=== PATIENT | female | born 1935 | race Caucasian/White ===

== ENCOUNTER 2018-02-06 14:15 | Inpatient (IN) | payer BC ==
[~2018-02-06] VITALS: Ht 154.9 cm; Wt 60.5 kg
[2018-02-06 14:22] VITALS: Ht 154.9 cm; Wt 60.5 kg
[2018-02-06] MEDS ORDERED: SOD CHLORIDE 0.9% 500 ML IV STA (15:00)
[2018-02-06] MEDS ORDERED: ASPI-817 PO (16:04)
[2018-02-06] MEDS ORDERED: FLUT1AER INHALATION (16:04)
[2018-02-06] MEDS ORDERED: ATOR40TA68 PO (16:04)
[2018-02-06] MEDS ORDERED: CITA10TA5 PO (16:05)
[2018-02-06] MEDS ORDERED: SITA50TA2 PO (16:05)
[2018-02-06] MEDS ORDERED: LEVO75TA5 PO (16:05)
[2018-02-06] MEDS ORDERED: LOSA1TAB25 PO (16:06)
[2018-02-06] MEDS ORDERED: PSYL283P27 PO (16:07)
[2018-02-06] MEDS ORDERED: CALC500T91 PO (16:07)
[2018-02-06] MEDS ORDERED: POTA10TA37 PO (16:08)
[2018-02-06] MEDS ORDERED: CYAN100080 PO (16:09)
[2018-02-06] MEDS ORDERED: CHOL200073 PO (16:09)
[2018-02-06] MEDS ORDERED: MEMA10TA PO (16:10)
[2018-02-06] MEDS ORDERED: LACTINEX PO (16:10)
[2018-02-06] MEDS ORDERED: AMLO5TAB4 PO (16:10)
[2018-02-06] MEDS ORDERED: METF100010 PO (16:11)
[2018-02-06] MEDS ORDERED: ACET-141 PO (16:12)
[2018-02-06] MEDS ORDERED: CEFTRIAXONE 1 GM/50 ML (PMX) 50 ML IVPB ONE (17:00)
--- NOTE | 2018-02-06 17:01 | ERD ---
ER Documentation Chief Complaint Chief Complaint c/o dizziness, started today. Generalized weakness noted. HPI 82-year-old female with a history of dementia, diabetes, hypertension, hypothyroidism, brain aneurysm, stroke, and COPD presenting from her assisted living due to near syncopal episode. She was very dizzy and per her family member looked very pale. She denies any associated chest pain, headache, shortness of breath, fever, chills, abdominal pain, or dysuria. Currently she states she feels well. ROS All systems reviewed and are negative except as per history of present illness. Medications Home Meds Reported Medications Acetaminophen* (Acetaminophen*) 500 MG Extra Strength Tablet, 500 MG PO TID PRN for PAIN, TAB 02/06/18 Metformin Hcl* (Metformin Hcl*) 1,000 Mg Tablet, 1000 MG PO WITH BREAKFAST DINNE, #60 TAB 02/06/18 Memantine* (Namenda*) 10 Mg Tablet, 10 MG PO BID, #60 TAB 02/06/18 Lactobacillus Acidophilus* (Lactinex*) 1 Tab Chew, 1 TAB PO BID, TAB 02/06/18 Amlodipine Besylate* (Norvasc*) 5 Mg Tablet, 5 MG PO BID, TAB 02/06/18 Cholecalciferol (Vitamin D3) (VITAMIN D-3) 2,000 Unit Capsule, 2000 UNIT PO DAILY, CAP 02/06/18 Cyanocobalamin* (Vitamin B-12*) 1,000 Mcg Tablet.sa, 1000 MCG PO DAILY, TAB 02/06/18 Potassium Chloride* (K-Dur*) 10 Meq Tab.prt.sr, 10 MEQ PO DAILY, TAB 02/06/18 Calcium Carbonate (Kvus-Xrg-833) 500 Mg Tablet, 500 MG PO DAILY, TAB 02/06/18 Psyllium Husk/Aspartame (Metamucil Sugar-Free Powder) 283 Gm Powder, 5 ML PO DAILY 02/06/18 Losartan-Hydrochlorothiazide (Losartan-HCTZ) 100-25 Mg Tab, 1 TAB PO DAILY, TAB 02/06/18 Levothyroxine Sodium* (Levothyroxine Sodium*) 75 Mcg Tablet, 75 MCG PO BEFORE BREAKFAST, #30 TAB 02/06/18 Sitagliptin* (Januvia*) 50 Mg Tablet, 50 MG PO DAILY, #30 TAB 02/06/18 Citalopram Hydrobromide* (Citalopram Hydrobromide*) 10 Mg Tablet, 10 MG PO DAILY, #30 TAB 02/06/18 Fluticasone-Vilanterol (Breo Ellipta Inhaler) 100-25 Mcg/Actuation Aer.pow.ba, 1 PUFF INHALATION DAILY, #1 INHALER 02/06/18 Atorvastatin* (Atorvastatin*) 40 Mg Tablet, 40 MG PO QHS, #30 TAB 02/06/18 Aspirin* (Aspirin* EC) 81 Mg Tablet.dr, 81 MG PO DAILY, TAB 02/06/18 Allergies Allergies: Coded Allergies: No Known Allergy (Unverified , 02/06/18) PMhx/Soc History of Surgery: Yes (BRAIN ANEURISM ) Anesthesia Reaction: No Hx Neurological Disorder: Yes (CVA, DEMENTIA) Hx Respiratory Disorders: Yes (COPD) Hx Cardiac Disorders: Yes (HTN) Hx Psychiatric Problems: No Hx Miscellaneous Medical Probl: Yes (DM TYPE II) Hx Alcohol Use: Yes Hx Substance Use: No Hx Tobacco Use: Yes Smoking Status: Former smoker FmHx Family History: No diabetes Physical Exam Vitals Vital Signs Date Temp Pulse Resp B/P (MAP) Pulse Ox O2 O2 Flow FiO2 Time Delivery Rate 02/06/18 97.9 93 20 135/63 100 14:22 (87) Physical Exam Const: No acute distress Head: Atraumatic Eyes: Normal Conjunctiva ENT: Normal External Ears, Nose and Mouth. Dry mucous membranes Neck: Full range of motion. No meningismus. Resp: Clear to auscultation bilaterally Cardio: Regular rate and rhythm, no murmurs Abd: Soft, non tender, non distended. Normal bowel sounds Skin: Somewhat pale. No petechiae or rashes Back: No midline or flank tenderness Ext: No cyanosis, or edema Neur: Awake and alert, oriented to self and place. Normal speech. Cranial nerves intact. Strength and sensations intact in all 4 extremities Psych: Normal Mood and Affect Result Diagram: 02/06/18 1513 02/06/18 1513 Results 24 hrs Laboratory Tests Test 02/06/18 15:13 02/06/18 15:24 02/06/18 16:19 White Blood Count 7.9 10^3/ul Red Blood Count 5.26 10^6/ul Hemoglobin 14.0 g/dl Hematocrit 44.6 % Mean Corpuscular Volume 84.8 fl Mean Corpuscular Hemoglobin 26.6 pg Mean Corpuscular 31.4 g/dl Hemoglobin Concent Red Cell Distribution Width 14.6 % Platelet Count 239 10^3/UL Mean Platelet Volume 10.0 fl Immature Granulocytes % 0.500 % Neutrophils % 73.4 % Lymphocytes % 14.1 % Monocytes % 8.0 % Eosinophils % 3.1 % Basophils % 0.9 % Nucleated Red Blood Cells % 0.0 /100WBC Immature Granulocytes # 0.040 10^3/ul Neutrophils # 5.8 10^3/ul Lymphocytes # 1.1 10^3/ul Monocytes # 0.6 10^3/ul Eosinophils # 0.2 10^3/ul Basophils # 0.1 10^3/ul Nucleated Red Blood Cells # 0.0 10^3/ul Prothrombin Time 12.7 Sec Prothrombin Time Ratio 1.0 INR International 0.94 Normalized Ratio Sodium Level 147 mmol/L Potassium Level 4.2 mmol/L Chloride Level 105 mmol/L Carbon Dioxide Level 28 mmol/L Anion Gap 14 Blood Urea Nitrogen 36 mg/dl Creatinine 0.91 mg/dl Est Glomerular Filtrat mL/min Rate mL/min Glucose Level 145 mg/dl Calcium Level 11.1 mg/dl Troponin I < 0.012 ng/ml Bedside Glucose 136 mg/dL Urine Color YELLOW Urine Clarity CLEAR Urine pH 6.0 Urine Specific [place] 1.015 Urine Ketones NEGATIVE mg/dL Urine Nitrite POSITIVE mg/dL Urine Bilirubin NEGATIVE mg/dL Urine Urobilinogen NEGATIVE mg/dL Urine Leukocyte Esterase 2+ Damien/ul Urine Microscopic RBC 2 /HPF Urine Microscopic WBC 9 /HPF Urine Bacteria MANY /HPF Urine Hemoglobin NEGATIVE mg/dL Urine Glucose NEGATIVE mg/dL Urine Total Protein NEGATIVE mg/dl Current Medications Medications Dose Sig/Carlitos Start Time Status Last (Trade) Ordered Route PRN Stop Time Admin Dose Reason Admin Sodium 500 ml @ Q1H STAT 02/06/18 DC 02/06/18 Chloride 500 mls/hr IV 15:00 02/06/18 15:17 15:59 Ceftriaxone 50 ml @ ONCE ONCE 02/06/18 DC 02/06/18 Sodium 100 mls/hr IVPB 17:00 02/06/18 16:47 17:29 Amlodipine 5 mg BID PO 02/06/18 Besylate 21:00 (Norvasc) Aspirin 81 mg DAILY PO 02/07/18 (Halfprin) 09:00 40 mg QHS PO 02/06/18 Atorvastatin 21:00 Calcium (Lipitor) Calcium 1.25 gm DAILY PO 02/07/18 Carbonate 09:00 (Oyster Shell Calcium) 2,000 unit DAILY PO 02/07/18 Cholecalcifer 09:00 ol (Vitamin D) Citalopram 10 mg DAILY PO 02/07/18 Hydrobromide 09:00 (Celexa) 1,000 mcg DAILY PO 02/07/18 Cyanocobalami 09:00 n (Vitamin B12) 1 inh DAILY INH 02/07/18 Fluticasone/ 09:00 Vilanterol (Breo Ellipta 100-25 Mcg Inh) 75 mcg BEFORE 02/07/18 Levothyroxine BREAKFAST 07:00 Sodium PO (Synthroid) Memantine 10 mg BID PO 02/06/18 (Namenda) 21:00 Ondansetron 4 mg ER BRIDGE 02/06/18 DC HCl (Zofran PRN IV 18:00 02/06/18 Inj) NAUSEA AND/OR 18:00 VOMITING 650 mg ER BRIDGE 02/06/18 DC Acetaminophen PRN PO MILD 18:00 02/06/18 (Tylenol PAIN(1-3)OR 18:00 Tab) ELEVATED TEMP Sodium 1,000 ml @ Q24H IV 02/06/18 Chloride 40 mls/hr 17:41 IV Flush 3 ml PER 02/06/18 (NS 3 ml) PROTOCOL IV 18:00 Ondansetron 4 mg Q6H PRN 02/06/18 HCl (Zofran IV NAUSEA 18:00 Inj) AND/OR VOMITING 650 mg Q6H PRN 02/06/18 Acetaminophen PO PAIN 18:00 (Tylenol LEVEL 1-3 OR Tab) FEVER 1 tab Q6H PRN 02/06/18 Acetaminophen PO PAIN 18:00 / LEVEL 4-6 Hydrocodone Bitart ([place] (5/325)) Ceftriaxone 50 ml @ Q24H IVPB 02/07/18 Sodium 100 mls/hr 18:00 Discontinue ONCE ONCE 02/06/18 UNV Miscellaneous current oral XX 18:30 02/06/18 sulfonylur... 18:31 Information (* Miscellaneous Pharmacy Order) Diagnostic 1 ea 02 XX 02/07/18 UNV Test (Pha) 02:00 (Accu-Chek) Insulin 9 units DAILY@199902/06/18 UNV Glargine SC 20:00 (Lantus) ONCE ONCE 02/06/18 UNV Miscellaneous HYPOGLYCEMIA XX 18:30 02/06/18 PROTOCOL 18:31 Information w... (* Miscellaneous Pharmacy Order) Insulin NOVOLOG WITH MEALS 02/06/18 UNV Aspart *MILD* BEDTIME SC 21:00 (Novolog ALGORITHM Insulin Pen) Discontinue ONCE ONCE 02/06/18 UNV Miscellaneous all previ... XX 18:30 02/06/18 18:31 Information (* Miscellaneous Pharmacy Order) Losartan 100 mg DAILY PO 02/07/18 UNV Potassium 09:00 (Cozaar) Procedures/MDM EMERGENT LABS AND DIAGNOSTIC STUDIES: Lab Results above were reviewed and interpreted by me. CBC: no anemia or evidence of infection BMP: Hypernatremia, elevated BUN, consistent with dehydration. No evidence of renal failure or hypoglycemia. No evidence of acidosis Troponin within normal limits, not indicative of cardiac ischemia UA: Consistent with infection 12-lead EKG was interpreted by Ankur Caro MD: Normal Sinus Rhythm with ventricular rate of beats per minute Normal axis Normal intervals No acute ST or T wave changes suggestive of acute ischemia or STEMI. Radiology Results as interpreted by Radiology below were reviewed by SVictor M Caro MD: Chest x-ray shows no significant acute abnormalities Initial Nursing notes reviewed. Previous Medical Records requested via the Electronic Health Record. EMERGENCY DEPARTMENT COURSE / MEDICAL DECISION MAKING: The patient presented after a near syncopal episode. Differential includes but is not limited to cardiac arrhythmia or ischemia, pulmonary embolism, vasovagal syncope, situational syncope, dehydration with orthostatic hypotension, hemorrhage, sepsis, stroke ,ICH, hypoglycemia. I have a low suspicion for seizure, stroke, or intracranial hemorrhage. No evidence of ACS. Blood sugar was normal. EKG showed no significant arrhythmia or ischemia. Labs were notable for hypernatremia and elevated BUN, likely secondary to dehydration. She also has evidence of a UTI for which Rocephin was given. Chest Xray showed no acute abnormalities. Given the patients medical history and risk factors, occult etiology such as fatal dysrhythmia cannot be ruled out. Her symptoms are most likely secondary to dehydration. I do not believe patient is safe for discharge and will need admission for telemetry monitoring and further workup. Accepting Care Team: Current data and ongoing care discussed. Time: Time of admission Primary Provider: Dr. Migue Sauceda Diagnosis: Primary Impression: Near syncope Additional Impression: Dehydration, mild Condition: JOSSE Ford MD Feb 06, 2018 17:01
[2018-02-06] MEDS ORDERED: SOD CHLORIDE 0.9% 1,000 ML IV SCH (17:41)
[2018-02-06] MEDS ORDERED: NACL 0.9% 3 ML SYG IV SCH (18:00)
[2018-02-06] MEDS ORDERED: ACETAMINOPHEN 325 MG TAB PO PRN ×2 (18:00)
[2018-02-06] MEDS ORDERED: HYDROCODONE/APAP (5/325) TAB PO PRN (18:00)
[2018-02-06] MEDS ORDERED: ONDANSETRON 4 MG INJ IV PRN ×2 (18:00)
--- NOTE | 2018-02-06 18:12 | HP ---
Date/Time of Note Date/Time of Note DATE: 02/06/18 TIME: 18:11 Assessment/Plan VTE Prophylaxis Pharmacological prophylaxis: other Lines/Catheters IV Catheter Type (from Nrsg): Peripheral IV Assessment/Plan Hospital Course Objective Physical exam General: Patient is laying in bed and answers questions appropriately Mentation: Patient is alert and oriented to self Head: Normocephalic atraumatic Eyes: EOMI, pupils reactive to light Neck: Supple, nontender, midline Respiratory: Clear to auscultation bilaterally Cardiovascular: regular rate, no obvious murmurs Gastrointestinal: non-tender to palpation, bowel sounds heard. Neurological: Moves all extremities spontaneously Skin: No new skin lesions Assessment and plan Near syncope, dizziness -Given patient's dementia status and elderly age, uncertain if this is near syncope versus true syncope, will workup for presyncope given uncertainties -Echocardiogram pending -CT head pending -MRI head pending UTI -Ceftriaxone for now Hypertension -Holding patient's hydrochlorothiazide as this may be dehydrating in an elderly individual with dementia, will continue other meds Diabetes mellitus -Insulin while in house Dementia -Continue Namenda Dyslipidemia -Continue home meds COPD -Continue Brio Hypothyroidism -Continue home meds Mood disorder -continue Celexa Disposition -Mild IV fluid, antibiotic, imaging pending Result Diagram: 02/06/18 1513 02/06/18 1513 Results 24hrs Laboratory Tests Test 02/06/18 15:13 02/06/18 15:24 02/06/18 16:19 White Blood Count 7.9 Red Blood Count 5.26 Hemoglobin 14.0 Hematocrit 44.6 Mean Corpuscular Volume 84.8 Mean Corpuscular Hemoglobin 26.6 L Mean Corpuscular Hemoglobin Concent 31.4 L Red Cell Distribution Width 14.6 H Platelet Count 239 Mean Platelet Volume 10.0 Immature Granulocytes % 0.500 H Neutrophils % 73.4 Lymphocytes % 14.1 L Monocytes % 8.0 Eosinophils % 3.1 Basophils % 0.9 Nucleated Red Blood Cells % 0.0 Immature Granulocytes # 0.040 H Neutrophils # 5.8 Lymphocytes # 1.1 Monocytes # 0.6 Eosinophils # 0.2 Basophils # 0.1 Nucleated Red Blood Cells # 0.0 Prothrombin Time 12.7 Prothrombin Time Ratio 1.0 INR International Normalized Ratio 0.94 Sodium Level 147 H Potassium Level 4.2 Chloride Level 105 Carbon Dioxide Level 28 Anion Gap 14 H Blood Urea Nitrogen 36 H Creatinine 0.91 Est Glomerular Filtrat Rate mL/min Glucose Level 145 Calcium Level 11.1 H Troponin I < 0.012 Bedside Glucose 136 Urine Color YELLOW Urine Clarity CLEAR Urine pH 6.0 Urine Specific [place] 1.015 Urine Ketones NEGATIVE Urine Nitrite POSITIVE A Urine Bilirubin NEGATIVE Urine Urobilinogen NEGATIVE Urine Leukocyte Esterase 2+ H Urine Microscopic RBC 2 Urine Microscopic WBC 9 H Urine Bacteria MANY A Urine Hemoglobin NEGATIVE Urine Glucose NEGATIVE Urine Total Protein NEGATIVE HPI/ROS Admit Date/Time Admit Date/Time Hx of Present Illness Patient is a female with past medical history significant for vascular dementia, diabetes mellitus, hypertension, hypothyroidism, brain aneurysm, CVA, COPD, dyslipidemia, mood disorder who presents to [facility] from assisted living facility due to near syncope. Patient does have dementia but is occasionally oriented to self, information is obtained at bedside with help of family member. Patient states that she woke up today she started to feel dizzy, did not fall or have a true syncopal episode. Patient currently is very pleasant, however is very difficult to ascertain which is true or not given her dementia status. Patient does not have any other acute complaints and denies any urinary symptoms. Patient denies chest pain, shortness of breath, headache, dizziness, leg pain, abdominal pain, nausea, vomiting PMH/Family/Social Past Medical History Medications Current Medications Amlodipine Besylate (Norvasc) 5 mg BID PO ; Start 02/06/18 at 21:00 Aspirin (Halfprin) 81 mg DAILY PO ; Start 02/07/18 at 09:00 Atorvastatin Calcium (Lipitor) 40 mg QHS PO ; Start 02/06/18 at 21:00 Calcium Carbonate (Oyster Shell Calcium) 1.25 gm DAILY PO ; Start 02/07/18 at 09:00 Cholecalciferol (Vitamin D) 2,000 unit DAILY PO ; Start 02/07/18 at 09:00 Citalopram Hydrobromide (Celexa) 10 mg DAILY PO ; Start 02/07/18 at 09:00 Cyanocobalamin (Vitamin B12) 1,000 mcg DAILY PO ; Start 02/07/18 at 09:00 Fluticasone/ Vilanterol (Breo Ellipta 100-25 Mcg Inh) 1 inh DAILY INH ; Start 02/07/18 at 09:00 Levothyroxine Sodium (Synthroid) 75 mcg BEFORE BREAKFAST PO ; Start 02/07/18 at 07:00 Memantine (Namenda) 10 mg BID PO ; Start 02/06/18 at 21:00 Sodium Chloride 1,000 ml @ 40 mls/hr Q24H IV ; Start 02/06/18 at 17:41 IV Flush (NS 3 ml) 3 ml PER PROTOCOL IV ; Start 02/06/18 at 18:00 Ondansetron HCl (Zofran Inj) 4 mg Q6H PRN IV NAUSEA AND/OR VOMITING; Start 02/06/18 at 18:00 Acetaminophen (Tylenol Tab) 650 mg Q6H PRN PO PAIN LEVEL 1-3 OR FEVER; Start 02/06/18 at 18:00 Acetaminophen/ Hydrocodone Bitart ([place] (5/325)) 1 tab Q6H PRN PO PAIN LEVEL 4-6; Start 02/06/18 at 18:00 Ceftriaxone Sodium 50 ml @ 100 mls/hr Q24H IVPB ; Start 02/07/18 at 18:00 Coded Allergies: No Known Allergy (Unverified , 02/06/18) Social History Smoking Status: Former smoker Exam/Review of Systems Vital Signs Vitals Vital Signs Date Temp Pulse Resp B/P (MAP) Pulse Ox O2 O2 Flow FiO2 Time Delivery Rate 02/06/18 97.9 93 20 135/63 100 14:22 (87) PUMA HOGAN Feb 06, 2018 18:12
[2018-02-06] MEDS ORDERED: DEXTROSE 50% 50 ML SYRINGE IV PRN ×2 (18:30)
[2018-02-06] MEDS ORDERED: GLUCOSE GEL 15 GRAM TUBE BUCCAL PRN (18:30)
[2018-02-06] MEDS ORDERED: GLUCOSE GEL 15 GRAM TUBE PO PRN ×2 (18:30)
[2018-02-06] MEDS ORDERED: GLUCAGON 1 MG INJ IM PRN (18:30)
[2018-02-06] MEDS: INSULIN ASPART [NOVOLOG] 3 ML PEN SC SCH (21:00)
[2018-02-06 21:10] VITALS: PULSE 84
[2018-02-06 21:20] VITALS: BP 141/61; PULSE 82; RESP 18
[2018-02-06] MEDS: ATORVASTATIN 40 MG TAB PO SCH (21:33)
[2018-02-06] MEDS: MEMANTINE 10 MG TAB PO SCH (21:33)
[2018-02-06] MEDS: AMLODIPINE 5 MG TAB PO SCH (21:34)
[2018-02-06] MEDS: INSULIN GLARGINE [LANTus] (100 UNITS/ML) SYG SC SCH (22:07)
[2018-02-07] VITALS (10 sets, daily range): BP systolic 128–148; BP diastolic 59–72; PULSE 70–85; RESP 18–20
[2018-02-07] MEDS: ACCU-CHEK XX SCH (01:35)
[2018-02-07] MEDS: LEVOTHYROXINE 75 MCG TAB PO SCH (06:44)
[2018-02-07] MEDS: INSULIN ASPART [NOVOLOG] 3 ML PEN SC SCH ×4 (07:55→21:00)
[2018-02-07] MEDS: ASPIRIN (EC) 81 MG TAB PO SCH (08:42)
[2018-02-07] MEDS: AMLODIPINE 5 MG TAB PO SCH ×2 (08:43→21:19)
[2018-02-07] MEDS: CITALOPRAM 20 MG TAB PO SCH (08:43)
[2018-02-07] MEDS: CYANOCOBALAMIN 500 MCG TAB PO SCH (08:44)
[2018-02-07] MEDS: MEMANTINE 10 MG TAB PO SCH ×2 (08:44→21:19)
[2018-02-07] MEDS: CALCIUM CARBONATE 1.25 GM TAB PO SCH (08:44)
[2018-02-07] MEDS: LOSARTAN 50 MG TAB PO SCH (08:45)
[2018-02-07] MEDS: FLUTICASONE/VILANTEROL 100-25 INH SCH (08:46)
[2018-02-07] MEDS: CHOLECALCIFEROL 2,000 UNIT CAP PO SCH (12:54)
[2018-02-07] MEDS ORDERED: MAGNESIUM SULFATE 2 GM/50 ML 50 ML IVPB ONE (13:00)
--- NOTE | 2018-02-07 15:20 | PN ---
Date/Time of Note Date/Time of Note DATE: 02/07/18 TIME: 15:19 Objective Vitals Vital Signs Date Temp Pulse Resp B/P (MAP) Pulse Ox O2 O2 Flow FiO2 Time Delivery Rate 02/07/18 98.5 85 20 128/63 90 15:13 (84) 02/07/18 Room Air 04:00 Intake and Output 02/06/18 02/06/18 02/07/18 1515:00 23:00 07:00 IntakeIntake Total 100 ml 320 ml BalanceBalance 100 ml 320 ml Results Result Diagram: 02/07/18 0551 02/07/18 0551 Medications Medications Current Medications Amlodipine Besylate (Norvasc) 5 mg BID PO Last administered on 02/07/18 08:43; Admin Dose 5 MG; Start 02/06/18 at 21:00 Aspirin (Halfprin) 81 mg DAILY PO Last administered on 02/07/18 08:42; Admin Dose 81 MG; Start 02/07/18 at 09:00 Atorvastatin Calcium (Lipitor) 40 mg QHS PO Last administered on 02/06/18 21:33; Admin Dose 40 MG; Start 02/06/18 at 21:00 Calcium Carbonate (Oyster Shell Calcium) 1.25 gm DAILY PO Last administered on 02/07/18 08:44; Admin Dose 1.25 GM; Start 02/07/18 at 09:00 Cholecalciferol (Vitamin D) 2,000 unit DAILY PO Last administered on 02/07/18 12:54; Admin Dose 2,000 UNIT; Start 02/07/18 at 09:00 Citalopram Hydrobromide (Celexa) 10 mg DAILY PO Last administered on 02/07/18 08:43; Admin Dose 10 MG; Start 02/07/18 at 09:00 Cyanocobalamin (Vitamin B12) 1,000 mcg DAILY PO Last administered on 02/07/18 08:44; Admin Dose 1,000 MCG; Start 02/07/18 at 09:00 Fluticasone/ Vilanterol (Breo Ellipta 100-25 Mcg Inh) 1 inh DAILY INH Last administered on 02/07/18 08:46; Admin Dose 1 INH; Start 02/07/18 at 09:00 Levothyroxine Sodium (Synthroid) 75 mcg BEFORE BREAKFAST PO Last administered on 1/3/19at 06:44; Admin Dose 75 MCG; Start 02/07/18 at 07:00 Memantine (Namenda) 10 mg BID PO Last administered on 02/07/18at 08:44; Admin Dose 10 MG; Start 02/06/18 at 21:00 IV Flush (NS 3 ml) 3 ml PER PROTOCOL IV ; Start 02/06/18 at 18:00 Ondansetron HCl (Zofran Inj) 4 mg Q6H PRN IV NAUSEA AND/OR VOMITING; Start 02/06/18 at 18:00 Acetaminophen (Tylenol Tab) 650 mg Q6H PRN PO PAIN LEVEL 1-3 OR FEVER; Start 02/06/18 at 18:00 Acetaminophen/ Hydrocodone Bitart ([place] (5/325)) 1 tab Q6H PRN PO PAIN LEVEL 4-6; Start 02/06/18 at 18:00 Ceftriaxone Sodium 50 ml @ 100 mls/hr Q24H IVPB ; Start 02/07/18 at 18:00 Diagnostic Test (Pha) (Accu-Chek) 1 ea 02 XX ; Start 02/07/18 at 02:00 Insulin Glargine (Lantus) 9 units DAILY@2000 SC Last administered on 02/06/18at 22:07; Admin Dose 9 UNITS; Start 02/06/18 at 20:00 Insulin Aspart (Novolog Insulin Pen) NOVOLOG *MILD* ALGORITHM WITH MEALS BEDTIME SC ; Start 02/06/18 at 21:00 Losartan Potassium (Cozaar) 100 mg DAILY PO Last administered on 02/07/18at 08:45; Admin Dose 100 MG; Start 02/07/18 at 09:00 Miscellaneous Information 1 ea NOTE XX ; Start 02/06/18 at 18:30 Glucose (Glutose) 15 gm Q15M PRN PO DECREASED GLUCOSE; Start 02/06/18 at 18:30 Glucose (Glutose) 22.5 gm Q15M PRN PO DECREASED GLUCOSE; Start 02/06/18 at 18:30 Dextrose (D50w Syringe) 25 ml Q15M PRN IV DECREASED GLUCOSE; Start 02/06/18 at 18:30 Dextrose (D50w Syringe) 50 ml Q15M PRN IV DECREASED GLUCOSE; Start 02/06/18 at 18:30 Glucagon (Glucagen) 1 mg Q15M PRN IM DECREASED GLUCOSE; Start 02/06/18 at 18:30 Glucose (Glutose) 15 gm Q15M PRN BUCCAL DECREASED GLUCOSE; Start 02/06/18 at 18:30 VTE Prophylaxis Risk score (from Ns)>0 risk: 4 SCD applied (from Ns): Yes Lines/Catheters IV Catheter Type: Pablo in Place: No Assessment/Plan Hospital Course subjective no dizziness Objective Physical exam General: Patient is laying in bed and answers questions appropriately Mentation: Patient is alert and oriented to self Head: Normocephalic atraumatic Eyes: EOMI, pupils reactive to light Neck: Supple, nontender, midline Respiratory: Clear to auscultation bilaterally Cardiovascular: regular rate, no obvious murmurs Gastrointestinal: non-tender to palpation, bowel sounds heard. Neurological: Moves all extremities spontaneously Skin: No new skin lesions Assessment and plan Near syncope, dizziness -Given patient's dementia status and elderly age, uncertain if this is near syncope versus true syncope, will workup for presyncope given uncertainties -Echocardiogram pending -CT head noted -MRI head unable to perform due to hardware in brain due to aneurysm clipping? UTI -Ceftriaxone for now Hypertension -Holding patient's hydrochlorothiazide as this may be dehydrating in an elderly individual with dementia, will continue other meds Diabetes mellitus -Insulin while in house Dementia -Continue Namenda Dyslipidemia -Continue home meds COPD -Continue Breo Hypothyroidism -Continue home meds Mood disorder -continue Celexa hx of aneurysm clipping -monitor Disposition -cont abx, monitor BP without HCTZ, if stable, DC back to facility tomorrow PUMA HOGAN Feb 07, 2018 15:20
[2018-02-07] MEDS ORDERED: CEFTRIAXONE 1 GM/50 ML (PMX) 50 ML IVPB SCH (18:00)
--- NOTE | 2018-02-07 19:22 | RADRPT ---
Echocardiogram Report Patient Name: EDISON WRIGHT Gender: Female Date: 1935 Study Date: 07-Feb-2018 Mobile Nurse: Ryann [facility] Location: [address] Ref. Physician: PUMA HOGAN Quality: Adequate Procedures: Transthoracic echocardiogram with complete 2D, M-Mode, and doppler examination. Indications: Syncope. 2D/M Mode Doppler Measurement Value Normal Ranges Measurement Value Normal Ranges LVIDd 2D 2.9 3.5 - 5.6 cm AV Peak Gregory 1.7 m/sec LVIDs 2D 1.9 2.1 - 4.1 cm AV Peak PG 12.0 mmHg LVPWd 2D 1.2 0.6 - 1.1 cm AI Peak PG 39.0 mmHg IVSd 2D 1.2 0.6 - 1.1 cm AI Peak Gregory 3.1 m/sec AoR Diam 2D 2.9 2.0 - 3.7 cm AI PHT 382.0 msec LA/Ao 2D 1 0 - 1 LVOT Peak Gregory 1.0 m/sec LA Dimen 2D 3.0 2.3 - 4.0 cm LVOT Peak PG 4.0 mmHg MV E Peak Gregory 0.9 m/sec MV A Peak Gregory 1.2 m/sec MV E/A 0.7 MV Decel Time 356 msec Lat E` Gregory 0.1 m/sec Lateral E/E` 16.0 Med E` Gregory 0.1 m/sec MV E/A 0.7 TR Peak Gregory 2.4 m/sec TR Peak PG 24.0 mmHg RVSP 27.0 mmHg Findings Left Ventricle: Normal left ventricular systolic function. Normal left ventricular cavity size. Mild concentric left ventricular hypertrophy. Ejection fraction is visually estimated at 65 %. Tissue Doppler/Mitral Doppler indices are consistent with impaired relaxation (Stage I diastolic dysfunction). Right Ventricle: Normal right ventricular size. Normal right ventricular systolic function. Left Atrium: The left atrium is normal in size. Right Atrium: The right atrium is normal in size. Mitral Valve: Mild mitral leaflet calcification. Mild mitral annular calcification. Trace mitral regurgitation. Aortic Valve: No significant aortic stenosis or insufficiency. Aortic cusps appear mildly calcified. Mild aortic valve regurgitation. Tricuspid Valve: Normal appearance of the tricuspid valve. Estimated peak PA systolic pressure 27 mmHg. There is mild tricuspid regurgitation. Pulmonic Valve: Pulmonic valve not well visualized. There is trace pulmonic regurgitation. Pericardium: Trivial pericardial effusion. Aorta: Normal aortic root. IVC: Normal size and normal respiratory collapse consistent with normal right atrial pressure. Conclusions Normal left ventricular systolic function. Normal left ventricular cavity size. Mild concentric left ventricular hypertrophy. Ejection fraction is visually estimated at 65 %. Tissue Doppler/Mitral Doppler indices are consistent with impaired relaxation (Stage I diastolic dysfunction). Normal right ventricular size. Normal right ventricular systolic function. The left atrium is normal in size. The right atrium is normal in size. Mild mitral leaflet calcification. Mild mitral annular calcification. Trace mitral regurgitation. No significant aortic stenosis or insufficiency. Aortic cusps appear mildly calcified. Mild aortic valve regurgitation. Normal appearance of the tricuspid valve. Estimated peak PA systolic pressure 27 mmHg. There is mild tricuspid regurgitation. Trivial pericardial effusion. Electronically Signed By: Jordi Marina 07-Feb-2018 19:21:23 -0800 Patient Name: EDISON WRIGHT Study Date: 07-Feb-2018 [id number]
[2018-02-07] MEDS: ATORVASTATIN 40 MG TAB PO SCH (21:19)
[2018-02-07] MEDS: INSULIN GLARGINE [LANTus] (100 UNITS/ML) SYG SC SCH (21:36)
[2018-02-08] VITALS (10 sets, daily range): BP systolic 114–146; BP diastolic 57–75; PULSE 66–86; RESP 15–18
[2018-02-08] MEDS: ACCU-CHEK XX SCH (02:00)
[2018-02-08] MEDS: LEVOTHYROXINE 75 MCG TAB PO SCH (06:16)
[2018-02-08] MEDS: INSULIN ASPART [NOVOLOG] 3 ML PEN SC SCH ×4 (07:55→20:34)
[2018-02-08] MEDS: ASPIRIN (EC) 81 MG TAB PO SCH (08:33)
[2018-02-08] MEDS: LOSARTAN 50 MG TAB PO SCH (08:33)
[2018-02-08] MEDS: CITALOPRAM 20 MG TAB PO SCH (08:33)
[2018-02-08] MEDS: CALCIUM CARBONATE 1.25 GM TAB PO SCH (08:33)
[2018-02-08] MEDS: CHOLECALCIFEROL 2,000 UNIT CAP PO SCH (08:34)
[2018-02-08] MEDS: FLUTICASONE/VILANTEROL 100-25 INH SCH (08:34)
[2018-02-08] MEDS: MEMANTINE 10 MG TAB PO SCH ×2 (08:34→20:34)
[2018-02-08] MEDS: CYANOCOBALAMIN 500 MCG TAB PO SCH (08:34)
[2018-02-08] MEDS: AMLODIPINE 5 MG TAB PO SCH ×2 (10:34→20:34)
--- NOTE | 2018-02-08 15:57 | PN ---
Date/Time of Note Date/Time of Note DATE: 02/08/18 TIME: 15:55 Objective Vitals Vital Signs Date Temp Pulse Resp B/P (MAP) Pulse Ox O2 O2 Flow FiO2 Time Delivery Rate 02/08/18 97.6 86 17 128/62 92 15:06 (84) 02/07/18 Room Air 04:00 Intake and Output 02/07/18 02/07/18 02/08/18 1515:00 23:00 07:00 IntakeIntake Total 480 ml 550 ml 250 ml BalanceBalance 480 ml 550 ml 250 ml Results Result Diagram: 02/08/1861702/08/18617 Medications Medications Current Medications Amlodipine Besylate (Norvasc) 5 mg BID PO Last administered on 02/08/18 10:34; Admin Dose 5 MG; Start 02/06/18 at 21:00 Aspirin (Halfprin) 81 mg DAILY PO Last administered on 02/08/18 08:33; Admin Dose 81 MG; Start 02/07/18 at 09:00 Atorvastatin Calcium (Lipitor) 40 mg QHS PO Last administered on 02/07/18 21:19; Admin Dose 40 MG; Start 02/06/18 at 21:00 Calcium Carbonate (Oyster Shell Calcium) 1.25 gm DAILY PO Last administered on 02/08/18 08:33; Admin Dose 1.25 GM; Start 02/07/18 at 09:00 Cholecalciferol (Vitamin D) 2,000 unit DAILY PO Last administered on 02/08/18 08:34; Admin Dose 2,000 UNIT; Start 02/07/18 at 09:00 Citalopram Hydrobromide (Celexa) 10 mg DAILY PO Last administered on 02/08/18 08:33; Admin Dose 10 MG; Start 02/07/18 at 09:00 Cyanocobalamin (Vitamin B12) 1,000 mcg DAILY PO Last administered on 02/08/18 08:34; Admin Dose 1,000 MCG; Start 02/07/18 at 09:00 Fluticasone/ Vilanterol (Breo Ellipta 100-25 Mcg Inh) 1 inh DAILY INH Last administered on 02/08/18 08:34; Admin Dose 1 INH; Start 02/07/18 at 09:00 Levothyroxine Sodium (Synthroid) 75 mcg BEFORE BREAKFAST PO Last administered on 02/08/18at 06:16; Admin Dose 75 MCG; Start 02/07/18 at 07:00 Memantine (Namenda) 10 mg BID PO Last administered on 02/08/18at 08:34; Admin Dose 10 MG; Start 02/06/18 at 21:00 IV Flush (NS 3 ml) 3 ml PER PROTOCOL IV ; Start 02/06/18 at 18:00 Ondansetron HCl (Zofran Inj) 4 mg Q6H PRN IV NAUSEA AND/OR VOMITING; Start 02/06/18 at 18:00 Acetaminophen (Tylenol Tab) 650 mg Q6H PRN PO PAIN LEVEL 1-3 OR FEVER; Start 02/06/18 at 18:00 Acetaminophen/ Hydrocodone Bitart ([place] (5/325)) 1 tab Q6H PRN PO PAIN LEVEL 4-6; Start 02/06/18 at 18:00 Diagnostic Test (Pha) (Accu-Chek) 1 ea 02 XX ; Start 02/07/18 at 02:00 Insulin Glargine (Lantus) 9 units DAILY@2000 SC Last administered on 02/07/18at 21:36; Admin Dose 9 UNITS; Start 02/06/18 at 20:00 Insulin Aspart (Novolog Insulin Pen) NOVOLOG *MILD* ALGORITHM WITH MEALS BEDTIME SC Last administered on 02/08/18at 12:19; Admin Dose 5 UNIT; Start 02/06/18 at 21:00 Losartan Potassium (Cozaar) 100 mg DAILY PO Last administered on 02/08/18at 08:33; Admin Dose 100 MG; Start 02/07/18 at 09:00 Miscellaneous Information 1 ea NOTE XX ; Start 02/06/18 at 18:30 Glucose (Glutose) 15 gm Q15M PRN PO DECREASED GLUCOSE; Start 02/06/18 at 18:30 Glucose (Glutose) 22.5 gm Q15M PRN PO DECREASED GLUCOSE; Start 02/06/18 at 18:30 Dextrose (D50w Syringe) 25 ml Q15M PRN IV DECREASED GLUCOSE; Start 02/06/18 at 18:30 Dextrose (D50w Syringe) 50 ml Q15M PRN IV DECREASED GLUCOSE; Start 02/06/18 at 18:30 Glucagon (Glucagen) 1 mg Q15M PRN IM DECREASED GLUCOSE; Start 02/06/18 at 18:30 Glucose (Glutose) 15 gm Q15M PRN BUCCAL DECREASED GLUCOSE; Start 02/06/18 at 18:30 Ciprofloxacin (Cipro) 250 mg BID@06,18 PO ; Start 02/08/18 at 18:00 VTE Prophylaxis Risk score (from Ns)>0 risk: 4 [place] [facility] [place] Lines/Catheters IV Catheter Type: Pablo in Place: No Assessment/Plan Hospital Course subjective no dizziness Objective Physical exam General: Patient is laying in bed and answers questions appropriately Mentation: Patient is alert and oriented to self Head: Normocephalic atraumatic Eyes: EOMI, pupils reactive to light Neck: Supple, nontender, midline Respiratory: Clear to auscultation bilaterally Cardiovascular: regular rate, no obvious murmurs Gastrointestinal: non-tender to palpation, bowel sounds heard. 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 UTI -Ceftriaxone changed to cipro for 1 more day Hypertension -Holding patient's hydrochlorothiazide as this may be dehydrating in an elderly individual with dementia, will continue other meds Diabetes mellitus -Insulin while in house Dementia -Continue Namenda Dyslipidemia -Continue home meds COPD -Continue Breo Hypothyroidism -Continue home meds Mood disorder -continue Celexa hx of aneurysm clipping -monitor Disposition -cont abx, monitor BP without HCTZ, -spoke with JOY, patient's daughter, will try to place patient in SNF PUMA HOGAN Feb 08, 2018 15:57
[2018-02-08] MEDS: CIPROFLOXACIN 250 MG TAB PO SCH (17:04)
[2018-02-08] MEDS: ATORVASTATIN 40 MG TAB PO SCH (20:34)
[2018-02-08] MEDS: INSULIN GLARGINE [LANTus] (100 UNITS/ML) SYG SC SCH (20:40)
[2018-02-09] VITALS (11 sets, daily range): BP systolic 126–139; BP diastolic 58–69; PULSE 73–88; RESP 15–18
[2018-02-09] MEDS: ACCU-CHEK XX SCH (02:00)
[2018-02-09] MEDS: CIPROFLOXACIN 250 MG TAB PO SCH ×2 (06:37→18:10)
[2018-02-09] MEDS: LEVOTHYROXINE 75 MCG TAB PO SCH (06:37)
[2018-02-09] MEDS: INSULIN ASPART [NOVOLOG] 3 ML PEN SC SCH ×4 (07:55→20:38)
[2018-02-09] MEDS: CHOLECALCIFEROL 2,000 UNIT CAP PO SCH (09:38)
[2018-02-09] MEDS: ASPIRIN (EC) 81 MG TAB PO SCH (09:38)
[2018-02-09] MEDS: CYANOCOBALAMIN 500 MCG TAB PO SCH (09:39)
[2018-02-09] MEDS: MEMANTINE 10 MG TAB PO SCH ×2 (09:39→20:40)
[2018-02-09] MEDS: CALCIUM CARBONATE 1.25 GM TAB PO SCH (09:39)
[2018-02-09] MEDS: LOSARTAN 50 MG TAB PO SCH (09:39)
[2018-02-09] MEDS: FLUTICASONE/VILANTEROL 100-25 INH SCH (09:40)
[2018-02-09] MEDS: CITALOPRAM 20 MG TAB PO SCH (09:40)
[2018-02-09] MEDS: AMLODIPINE 5 MG TAB PO SCH ×2 (09:41→20:42)
[2018-02-09] MEDS: INSULIN GLARGINE [LANTus] (100 UNITS/ML) SYG SC SCH (20:39)
[2018-02-09] MEDS: ATORVASTATIN 40 MG TAB PO SCH (20:40)
[2018-02-10 02:20] VITALS: BP 150/67; PULSE 75; RESP 18
[2018-02-10] MEDS: ACCU-CHEK XX SCH (02:26)
[2018-02-10] MEDS: CIPROFLOXACIN 250 MG TAB PO SCH (05:45)
[2018-02-10] MEDS: LEVOTHYROXINE 75 MCG TAB PO SCH (05:45)
[2018-02-10] MEDS: INSULIN ASPART [NOVOLOG] 3 ML PEN SC SCH ×4 (08:00→21:13)
[2018-02-10 08:48] VITALS: BP 140/63; PULSE 77; RESP 18
[2018-02-10] MEDS: CITALOPRAM 20 MG TAB PO SCH (09:54)
[2018-02-10] MEDS: AMLODIPINE 5 MG TAB PO SCH ×2 (09:55→20:16)
[2018-02-10] MEDS: ASPIRIN (EC) 81 MG TAB PO SCH (09:55)
[2018-02-10] MEDS: CYANOCOBALAMIN 500 MCG TAB PO SCH (09:55)
[2018-02-10] MEDS: MEMANTINE 10 MG TAB PO SCH ×2 (09:55→20:14)
[2018-02-10] MEDS: CALCIUM CARBONATE 1.25 GM TAB PO SCH (09:55)
[2018-02-10] MEDS: LOSARTAN 50 MG TAB PO SCH (09:55)
[2018-02-10] MEDS: CHOLECALCIFEROL 2,000 UNIT CAP PO SCH (09:57)
[2018-02-10] MEDS: FLUTICASONE/VILANTEROL 100-25 INH SCH (10:04)
--- NOTE | 2018-02-10 12:26 | PN ---
Date/Time of Note Date/Time of Note DATE: 02/10/18 TIME: 12:24 Objective Vitals Vital Signs Date Temp Pulse Resp B/P (MAP) Pulse Ox O2 O2 Flow FiO2 Time Delivery Rate 02/10/18 97.6 77 18 140/63 93 08:48 (88) 02/09/18 Room Air 16:20 Intake and Output 02/09/18 02/09/18 02/10/18 1515:00 23:00 07:00 IntakeIntake Total 800 ml 360 ml BalanceBalance 800 ml 360 ml Results Result Diagram: 02/10/18 0502 02/10/18 0502 Medications Medications Current Medications Amlodipine Besylate (Norvasc) 5 mg BID PO Last administered on 02/10/18 09:55; Admin Dose 5 MG; Start 02/06/18 at 21:00 Aspirin (Halfprin) 81 mg DAILY PO Last administered on 02/10/18 09:55; Admin Dose 81 MG; Start 02/07/18 at 09:00 Atorvastatin Calcium (Lipitor) 40 mg QHS PO Last administered on 02/09/18 20:40; Admin Dose 40 MG; Start 02/06/18 at 21:00 Calcium Carbonate (Oyster Shell Calcium) 1.25 gm DAILY PO Last administered on 02/10/18 09:55; Admin Dose 1.25 GM; Start 02/07/18 at 09:00 Cholecalciferol (Vitamin D) 2,000 unit DAILY PO Last administered on 02/10/18 09:57; Admin Dose 2,000 UNIT; Start 02/07/18 at 09:00 Citalopram Hydrobromide (Celexa) 10 mg DAILY PO Last administered on 02/10/18 09:54; Admin Dose 10 MG; Start 02/07/18 at 09:00 Cyanocobalamin (Vitamin B12) 1,000 mcg DAILY PO Last administered on 02/10/18 09:55; Admin Dose 1,000 MCG; Start 02/07/18 at 09:00 Fluticasone/ Vilanterol (Breo Ellipta 100-25 Mcg Inh) 1 inh DAILY INH Last administered on 02/10/18 10:04; Admin Dose 1 INH; Start 02/07/18 at 09:00 Levothyroxine Sodium (Synthroid) 75 mcg BEFORE BREAKFAST PO Last administered on 1/6/19at 05:45; Admin Dose 75 MCG; Start 02/07/18 at 07:00 Memantine (Namenda) 10 mg BID PO Last administered on 02/10/18at 09:55; Admin Dose 10 MG; Start 02/06/18 at 21:00 IV Flush (NS 3 ml) 3 ml PER PROTOCOL IV ; Start 02/06/18 at 18:00 Ondansetron HCl (Zofran Inj) 4 mg Q6H PRN IV NAUSEA AND/OR VOMITING; Start 02/06/18 at 18:00 Acetaminophen (Tylenol Tab) 650 mg Q6H PRN PO PAIN LEVEL 1-3 OR FEVER; Start 02/06/18 at 18:00 Acetaminophen/ Hydrocodone Bitart ([place] (5/325)) 1 tab Q6H PRN PO PAIN LEVEL 4-6; Start 02/06/18 at 18:00 Diagnostic Test (Pha) (Accu-Chek) 1 ea 02 XX Last administered on 02/10/18at 02:26; Admin Dose 1 EA; Start 02/07/18 at 02:00 Insulin Glargine (Lantus) 9 units DAILY@2000 SC Last administered on 02/09/18at 20:39; Admin Dose 9 UNITS; Start 02/06/18 at 20:00 Insulin Aspart (Novolog Insulin Pen) NOVOLOG *MILD* ALGORITHM WITH MEALS BEDTIME SC Last administered on 02/10/18at 12:06; Admin Dose 2 UNIT; Start 02/06/18 at 21:00 Losartan Potassium (Cozaar) 100 mg DAILY PO Last administered on 02/10/18at 09:55; Admin Dose 100 MG; Start 02/07/18 at 09:00 Miscellaneous Information 1 ea NOTE XX ; Start 02/06/18 at 18:30 Glucose (Glutose) 15 gm Q15M PRN PO DECREASED GLUCOSE; Start 02/06/18 at 18:30 Glucose (Glutose) 22.5 gm Q15M PRN PO DECREASED GLUCOSE; Start 02/06/18 at 18:30 Dextrose (D50w Syringe) 25 ml Q15M PRN IV DECREASED GLUCOSE; Start 02/06/18 at 18:30 Dextrose (D50w Syringe) 50 ml Q15M PRN IV DECREASED GLUCOSE; Start 02/06/18 at 18:30 Glucagon (Glucagen) 1 mg Q15M PRN IM DECREASED GLUCOSE; Start 02/06/18 at 18:30 Glucose (Glutose) 15 gm Q15M PRN BUCCAL DECREASED GLUCOSE; Start 02/06/18 at 18:30 Ciprofloxacin (Cipro) 250 mg BID@06,18 PO Last administered on 02/10/18at 05:45; Admin Dose 250 MG; Start 02/08/18 at 18:00 VTE Prophylaxis Risk score (from Ns)>0 risk: 4 SCD applied (from Ns): Yes Lines/Catheters IV Catheter Type: Pablo in Place: No Assessment/Plan Hospital Course subjective no dizziness Objective Physical exam General: Patient is laying in bed and answers questions appropriately Mentation: Patient is alert and oriented to self Head: Normocephalic atraumatic Eyes: EOMI, pupils reactive to light Neck: Supple, nontender, midline Respiratory: Clear to auscultation bilaterally Cardiovascular: regular rate, no obvious murmurs Gastrointestinal: non-tender to palpation, bowel sounds heard. 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 UTI -Ceftriaxone changed to cipro. finished short 3 day course for uncomplicated UTI Hypertension -Holding patient's hydrochlorothiazide as this may be dehydrating in an elderly individual with dementia, will continue other meds -doing well, will not DC patient with HCTZ, causing this patient with dementia, dehydration. Diabetes mellitus -Insulin while in house Dementia -Continue Namenda Dyslipidemia -Continue home meds COPD -Continue Breo Hypothyroidism -Continue home meds Mood disorder -continue Celexa hx of aneurysm clipping -monitor Disposition -cont abx, monitor BP without HCTZ, -spoke with POA, patient's daughter, will try to place patient in SNF (patient's is at [facility]) PUMA HOGAN Feb 10, 2018 12:25
[2018-02-10 15:03] VITALS: BP 115/53; PULSE 68; RESP 18
[2018-02-10 20:08] VITALS: BP 118/54; PULSE 80; RESP 20
[2018-02-10] MEDS: INSULIN GLARGINE [LANTus] (100 UNITS/ML) SYG SC SCH (20:13)
[2018-02-10] MEDS: ATORVASTATIN 40 MG TAB PO SCH (20:14)
[2018-02-11 02:00] VITALS: BP 127/59; PULSE 65; RESP 18
[2018-02-11] MEDS: ACCU-CHEK XX SCH (02:00)
[2018-02-11] MEDS: LEVOTHYROXINE 75 MCG TAB PO SCH (06:29)
[2018-02-11] MEDS: INSULIN ASPART [NOVOLOG] 3 ML PEN SC SCH ×4 (07:57→21:17)
[2018-02-11 08:00] VITALS: BP 142/67; PULSE 73; RESP 17
[2018-02-11] MEDS: CYANOCOBALAMIN 500 MCG TAB PO SCH (08:39)
[2018-02-11] MEDS: CHOLECALCIFEROL 2,000 UNIT CAP PO SCH (08:39)
[2018-02-11] MEDS: LOSARTAN 50 MG TAB PO SCH (08:39)
[2018-02-11] MEDS: MEMANTINE 10 MG TAB PO SCH ×2 (08:39→20:35)
[2018-02-11] MEDS: FLUTICASONE/VILANTEROL 100-25 INH SCH (08:39)
[2018-02-11] MEDS: CITALOPRAM 20 MG TAB PO SCH (08:39)
[2018-02-11] MEDS: ASPIRIN (EC) 81 MG TAB PO SCH (08:39)
[2018-02-11] MEDS: CALCIUM CARBONATE 1.25 GM TAB PO SCH (08:39)
[2018-02-11] MEDS: AMLODIPINE 5 MG TAB PO SCH ×2 (08:40→21:17)
--- NOTE | 2018-02-11 09:28 | PN ---
Date/Time of Note Date/Time of Note DATE: 02/11/18 TIME: 09:28 Assessment/Plan VTE Prophylaxis Risk score (from Ns)>0 risk: 4 SCD applied (from Ns): Yes Pharmacological prophylaxis: other Lines/Catheters IV Catheter Type (from Nrs): Saline Lock Urinary Cath still in place: No Assessment/Plan Assessment/Plan 1. 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 2. UTI - Completed short course of antibiotics 3. Hypertension - Bp stable - holding home hctz and in setting of dehydration will not continue as outpt 4. Diabetes mellitus - ISS and accuchecks 5. Dementia - Continue Namenda 6. Dyslipidemia - Continue home meds 7. COPD - Continue Breo 8. Hypothyroidism - Continue home meds 9. Mood disorder - continue Celexa 10. hx of aneurysm s/p clipping - monitor 11. Disposition - Patient remains stable and CM on board for placement to SNF. Daughter prefers [facility] Result Diagram: 02/11/18 0653 02/11/18 0653 Results 24hrs Laboratory Tests Test 02/10/18 12:05 02/10/18 17:02 02/10/18 20:10 02/10/18 21:09 Bedside Glucose 189 197 232 H 188 Test 02/11/18 02:05 02/11/18 06:53 02/11/18 07:54 Bedside Glucose 119 161 White Blood Count 6.7 Red Blood Count 4.99 Hemoglobin 13.3 Hematocrit 41.2 Mean Corpuscular Volume 82.6 Mean Corpuscular 26.7 L Hemoglobin Mean Corpuscular 32.3 Hemoglobin Concent Red Cell Distribution 14.6 H Width Platelet Count 208 Mean Platelet Volume 10.6 H Immature Granulocytes % 0.300 Neutrophils % 64.1 Lymphocytes % 21.2 Monocytes % 8.0 Eosinophils % 5.5 Basophils % 0.9 Nucleated Red Blood 0.0 Cells % Immature Granulocytes # 0.020 Neutrophils # 4.3 Lymphocytes # 1.4 Monocytes # 0.5 Eosinophils # 0.4 Basophils # 0.1 Nucleated Red Blood 0.0 Cells # Sodium Level 146 H Potassium Level 3.8 Chloride Level 107 Carbon Dioxide Level 26 Anion Gap 13 Blood Urea Nitrogen 19 Creatinine 0.67 Est Glomerular Filtrat Rate mL/min Glucose Level 132 Calcium Level 9.0 Phosphorus Level 3.2 Magnesium Level 2.1 Subjective 24 Hr Interval Summary Free Text/Dictation Patient resting comfortable and denies any acute issues. Denies any dizziness, chest pain, shortness of breath, or palpitations. Tolerating PO intake. Exam/Review of Systems Vital Signs Vitals Vital Signs Date Temp Pulse Resp B/P (MAP) Pulse Ox O2 O2 Flow FiO2 Time Delivery Rate 02/11/18 98.0 73 17 142/67 Nasal 08:00 (92) Cannula 02/11/18 93 02:00 Intake and Output 02/10/18 02/10/18 02/11/18 1414:59 22:59 06:59 IntakeIntake Total 480 ml 320 ml BalanceBalance 480 ml 320 ml Exam General: Patient is laying in bed and answers questions appropriately Mentation: Patient is alert and oriented to self Neck: Supple Respiratory: Clear to auscultation bilaterally. no wheezing or rhonhi Cardiovascular: regular rate and rhythm, no obvious murmurs Gastrointestinal: soft, non-tender to palpation, bowel sounds heard. Neurological: Moves all extremities spontaneously Skin: No new skin lesions Medications Medications Current Medications Amlodipine Besylate (Norvasc) 5 mg BID PO Last administered on 02/11/18 08:40; Admin Dose 5 MG; Start 02/06/18 at 21:00 Aspirin (Halfprin) 81 mg DAILY PO Last administered on 02/11/18 08:39; Admin Dose 81 MG; Start 02/07/18 at 09:00 Atorvastatin Calcium (Lipitor) 40 mg QHS PO Last administered on 02/10/18 20:14; Admin Dose 40 MG; Start 02/06/18 at 21:00 Calcium Carbonate (Oyster Shell Calcium) 1.25 gm DAILY PO Last administered on 02/11/18 08:39; Admin Dose 1.25 GM; Start 02/07/18 at 09:00 Cholecalciferol (Vitamin D) 2,000 unit DAILY PO Last administered on 02/11/18 08:39; Admin Dose 2,000 UNIT; Start 02/07/18 at 09:00 Citalopram Hydrobromide (Celexa) 10 mg DAILY PO Last administered on 02/11/18 08:39; Admin Dose 10 MG; Start 02/07/18 at 09:00 Cyanocobalamin (Vitamin B12) 1,000 mcg DAILY PO Last administered on 02/11/18 08:39; Admin Dose 1,000 MCG; Start 02/07/18 at 09:00 Fluticasone/ Vilanterol (Breo Ellipta 100-25 Mcg Inh) 1 inh DAILY INH Last administered on 02/11/18 08:39; Admin Dose 1 INH; Start 02/07/18 at 09:00 Levothyroxine Sodium (Synthroid) 75 mcg BEFORE BREAKFAST PO Last administered on 02/11/18 06:29; Admin Dose 75 MCG; Start 02/07/18 at 07:00 Memantine (Namenda) 10 mg BID PO Last administered on 02/11/18 08:39; Admin Dose 10 MG; Start 02/06/18 at 21:00 IV Flush (NS 3 ml) 3 ml PER PROTOCOL IV ; Start 02/06/18 at 18:00 Ondansetron HCl (Zofran Inj) 4 mg Q6H PRN IV NAUSEA AND/OR VOMITING; Start 02/06/18 at 18:00 Acetaminophen (Tylenol Tab) 650 mg Q6H PRN PO PAIN LEVEL 1-3 OR FEVER; Start 02/06/18 at 18:00 Acetaminophen/ Hydrocodone Bitart ([place] (5/325)) 1 tab Q6H PRN PO PAIN LEVEL 4-6; Start 02/06/18 at 18:00 Diagnostic Test (Pha) (Accu-Chek) 1 ea 02 XX Last administered on 02/10/18at 02:26; Admin Dose 1 EA; Start 02/07/18 at 02:00 Insulin Glargine (Lantus) 9 units DAILY@2000 SC Last administered on 02/10/18 20:13; Admin Dose 9 UNITS; Start 02/06/18 at 20:00 Insulin Aspart (Novolog Insulin Pen) NOVOLOG *MILD* ALGORITHM WITH MEALS BEDTIME SC Last administered on 02/11/18 07:57; Admin Dose 1 UNIT; Start 02/06/18 at 21:00 Losartan Potassium (Cozaar) 100 mg DAILY PO Last administered on 02/11/18 08:39; Admin Dose 100 MG; Start 02/07/18 at 09:00 Miscellaneous Information 1 ea NOTE XX ; Start 02/06/18 at 18:30 Glucose (Glutose) 15 gm Q15M PRN PO DECREASED GLUCOSE; Start 02/06/18 at 18:30 Glucose (Glutose) 22.5 gm Q15M PRN PO DECREASED GLUCOSE; Start 02/06/18 at 18:30 Dextrose (D50w Syringe) 25 ml Q15M PRN IV DECREASED GLUCOSE; Start 02/06/18 at 18:30 Dextrose (D50w Syringe) 50 ml Q15M PRN IV DECREASED GLUCOSE; Start 02/06/18 at 18:30 Glucagon (Glucagen) 1 mg Q15M PRN IM DECREASED GLUCOSE; Start 02/06/18 at 18:30 Glucose (Glutose) 15 gm Q15M PRN BUCCAL DECREASED GLUCOSE; Start 02/06/18 at 18:30 LOURDES PATEL MD Feb 11, 2018 09:28
[2018-02-11 14:02] VITALS: BP 140/69; PULSE 69; RESP 18
[2018-02-11] MEDS: INSULIN GLARGINE [LANTus] (100 UNITS/ML) SYG SC SCH (20:34)
[2018-02-11] MEDS: ATORVASTATIN 40 MG TAB PO SCH (20:35)
[2018-02-11 20:48] VITALS: BP 147/65; PULSE 89; RESP 18
[2018-02-12] MEDS: ACCU-CHEK XX SCH (02:00)
[2018-02-12 02:54] VITALS: BP 124/80; PULSE 75; RESP 16
[2018-02-12] MEDS: LEVOTHYROXINE 75 MCG TAB PO SCH (06:23)
[2018-02-12 08:00] VITALS: BP 135/62; PULSE 64; RESP 18
[2018-02-12] MEDS: INSULIN ASPART [NOVOLOG] 3 ML PEN SC SCH ×4 (08:00→21:36)
[2018-02-12] MEDS: CITALOPRAM 20 MG TAB PO SCH (08:43)
--- NOTE | 2018-02-12 08:44 | PN ---
Date/Time of Note Date/Time of Note DATE: 02/12/18 TIME: 08:44 Assessment/Plan VTE Prophylaxis Risk score (from Ns)>0 risk: 4 SCD applied (from Ns): Yes Pharmacological prophylaxis: other Lines/Catheters IV Catheter Type (from Nrs): Saline Lock Urinary Cath still in place: No Assessment/Plan Assessment/Plan 1. Near syncope, dizziness- resolved - Imaging results without any acute issues - ECHO noted 2. UTI - Completed short course of antibiotics 3. Hypertension - BP stable - holding home hctz since most likely contributed to dehydration 4. Diabetes mellitus - ISS and accuchecks 5. Dementia - Continue Namenda 6. Dyslipidemia - Continue home meds 7. COPD - Continue Breo 8. Hypothyroidism - Continue home meds 9. Mood disorder - continue Celexa 10. hx of aneurysm s/p clipping - monitor 11. Disposition - Pending insurance authorization for [facility]. Remains stable for discharge once accepted Result Diagram: 02/11/18 0653 02/11/18 0653 Results 24hrs Laboratory Tests Test 02/11/18 12:09 02/11/18 17:23 02/11/18 20:32 02/11/18 21:14 Bedside Glucose 159 231 H 221 H 195 Test 02/12/18 02:06 02/12/18 07:53 Bedside Glucose 132 140 Subjective 24 Hr Interval Summary Free Text/Dictation Patient denies any new complaints and no acute overnight events. Exam/Review of Systems Vital Signs Vitals Vital Signs Date Temp Pulse Resp B/P (MAP) Pulse Ox O2 O2 Flow FiO2 Time Delivery Rate 02/12/18 97.6 75 16 124/80 94 02:54 (95) 02/11/18 Nasal 08:00 Cannula Intake and Output 02/11/18 02/11/18 02/12/18 1515:00 23:00 07:00 IntakeIntake Total 120 ml 740 ml BalanceBalance 120 ml 740 ml Exam General: Patient is laying in bed and answers questions appropriately Neck: Supple Respiratory: Clear to auscultation bilaterally. no wheezing or rhonchi Cardiovascular: regular rate and rhythm, no obvious murmurs Gastrointestinal: soft, non-tender to palpation, bowel sounds heard. Neurological: Moves all extremities spontaneously Skin: No new skin lesions Medications Medications Current Medications Amlodipine Besylate (Norvasc) 5 mg BID PO Last administered on 02/11/18 21:17; Admin Dose 5 MG; Start 02/06/18 at 21:00 Aspirin (Halfprin) 81 mg DAILY PO Last administered on 02/11/18 08:39; Admin Dose 81 MG; Start 02/07/18 at 09:00 Atorvastatin Calcium (Lipitor) 40 mg QHS PO Last administered on 02/11/18 20:35; Admin Dose 40 MG; Start 02/06/18 at 21:00 Calcium Carbonate (Oyster Shell Calcium) 1.25 gm DAILY PO Last administered on 02/11/18 08:39; Admin Dose 1.25 GM; Start 02/07/18 at 09:00 Cholecalciferol (Vitamin D) 2,000 unit DAILY PO Last administered on 02/11/18 08:39; Admin Dose 2,000 UNIT; Start 02/07/18 at 09:00 Citalopram Hydrobromide (Celexa) 10 mg DAILY PO Last administered on 02/11/18 08:39; Admin Dose 10 MG; Start 02/07/18 at 09:00 Cyanocobalamin (Vitamin B12) 1,000 mcg DAILY PO Last administered on 02/11/18 08:39; Admin Dose 1,000 MCG; Start 02/07/18 at 09:00 Fluticasone/ Vilanterol (Breo Ellipta 100-25 Mcg Inh) 1 inh DAILY INH Last administered on 02/11/18 08:39; Admin Dose 1 INH; Start 02/07/18 at 09:00 Levothyroxine Sodium (Synthroid) 75 mcg BEFORE BREAKFAST PO Last administered on 02/12/18 06:23; Admin Dose 75 MCG; Start 02/07/18 at 07:00 Memantine (Namenda) 10 mg BID PO Last administered on 02/11/18 20:35; Admin Dose 10 MG; Start 02/06/18 at 21:00 IV Flush (NS 3 ml) 3 ml PER PROTOCOL IV ; Start 02/06/18 at 18:00 Ondansetron HCl (Zofran Inj) 4 mg Q6H PRN IV NAUSEA AND/OR VOMITING; Start 02/06/18 at 18:00 Acetaminophen (Tylenol Tab) 650 mg Q6H PRN PO PAIN LEVEL 1-3 OR FEVER; Start 02/06/18 at 18:00 Acetaminophen/ Hydrocodone Bitart ([place] (5/325)) 1 tab Q6H PRN PO PAIN LEVEL 4-6; Start 02/06/18 at 18:00 Diagnostic Test (Pha) (Accu-Chek) 1 ea 02 XX Last administered on 02/10/18at 02:26; Admin Dose 1 EA; Start 02/07/18 at 02:00 Insulin Glargine (Lantus) 9 units DAILY@2000 SC Last administered on 02/11/18at 20:34; Admin Dose 9 UNITS; Start 02/06/18 at 20:00 Insulin Aspart (Novolog Insulin Pen) NOVOLOG *MILD* ALGORITHM WITH MEALS BEDTIME SC Last administered on 02/11/18at 21:17; Admin Dose 1 UNIT; Start 02/06/18 at 21:00 Losartan Potassium (Cozaar) 100 mg DAILY PO Last administered on 02/11/18at 08:39; Admin Dose 100 MG; Start 02/07/18 at 09:00 Miscellaneous Information 1 ea NOTE XX ; Start 02/06/18 at 18:30 Glucose (Glutose) 15 gm Q15M PRN PO DECREASED GLUCOSE; Start 02/06/18 at 18:30 Glucose (Glutose) 22.5 gm Q15M PRN PO DECREASED GLUCOSE; Start 02/06/18 at 18:30 Dextrose (D50w Syringe) 25 ml Q15M PRN IV DECREASED GLUCOSE; Start 02/06/18 at 18:30 Dextrose (D50w Syringe) 50 ml Q15M PRN IV DECREASED GLUCOSE; Start 02/06/18 at 18:30 Glucagon (Glucagen) 1 mg Q15M PRN IM DECREASED GLUCOSE; Start 02/06/18 at 18:30 Glucose (Glutose) 15 gm Q15M PRN BUCCAL DECREASED GLUCOSE; Start 02/06/18 at 18:30 LOURDES PATEL MD Feb 12, 2018 08:44
[2018-02-12] MEDS: AMLODIPINE 5 MG TAB PO SCH ×2 (08:46→21:30)
[2018-02-12] MEDS: CYANOCOBALAMIN 500 MCG TAB PO SCH (08:46)
[2018-02-12] MEDS: LOSARTAN 50 MG TAB PO SCH (08:46)
[2018-02-12] MEDS: ASPIRIN (EC) 81 MG TAB PO SCH (08:47)
[2018-02-12] MEDS: CALCIUM CARBONATE 1.25 GM TAB PO SCH (08:47)
[2018-02-12] MEDS: CHOLECALCIFEROL 2,000 UNIT CAP PO SCH (08:47)
[2018-02-12] MEDS: MEMANTINE 10 MG TAB PO SCH ×2 (08:48→21:30)
[2018-02-12] MEDS: FLUTICASONE/VILANTEROL 100-25 INH SCH (08:48)
[2018-02-12 15:37] VITALS: BP 140/62; PULSE 72; RESP 20
[2018-02-12 20:00] VITALS: BP 138/63; PULSE 76; RESP 19
[2018-02-12] MEDS: INSULIN GLARGINE [LANTus] (100 UNITS/ML) SYG SC SCH (20:19)
[2018-02-12] MEDS: ATORVASTATIN 40 MG TAB PO SCH (21:00)
[2018-02-13 02:00] VITALS: BP 143/68; PULSE 71; RESP 18
[2018-02-13] MEDS: ACCU-CHEK XX SCH (02:00)
[2018-02-13] MEDS: LEVOTHYROXINE 75 MCG TAB PO SCH (06:16)
[2018-02-13 08:00] VITALS: BP 138/84; PULSE 72; RESP 18
[2018-02-13] MEDS: INSULIN ASPART [NOVOLOG] 3 ML PEN SC SCH ×4 (08:00→21:07)
--- NOTE | 2018-02-13 09:03 | PN ---
Date/Time of Note Date/Time of Note DATE: 02/13/18 TIME: 09:03 Assessment/Plan VTE Prophylaxis Risk score (from Nsg)>0 risk: 4 SCD applied (from Nsg): Yes Pharmacological prophylaxis: other Lines/Catheters IV Catheter Type (from Nrsg): Saline Lock Urinary Cath still in place: No Assessment/Plan Assessment/Plan 1. Near syncope, dizziness- resolved - Imaging results without any acute issues - ECHO noted 2. UTI - Completed short course of antibiotics 3. Hypertension - BP stable - holding home hctz since most likely contributed to dehydration 4. Diabetes mellitus - ISS and accuchecks 5. Dementia - Continue Namenda 6. Dyslipidemia - Continue home meds 7. COPD - Continue Breo 8. Hypothyroidism - Continue home meds 9. Mood disorder - continue Celexa 10. hx of aneurysm s/p clipping - monitor 11. Disposition - CM on board and states insurance refused SNF placement. Will need to return to assisted living facility Result Diagram: 02/11/18 0653 02/11/18 0653 Results 24hrs Laboratory Tests Test 02/12/18 11:49 02/12/18 17:04 02/12/18 20:17 02/12/18 21:32 Bedside Glucose 267 H 243 H 258 H 234 H Test 02/13/18 02:05 02/13/18 07:53 Bedside Glucose 119 125 Subjective 24 Hr Interval Summary Free Text/Dictation Patient lethargic this am but denies any complaints. slow while working with OT. No acute overnight events. Exam/Review of Systems Vital Signs Vitals Vital Signs Date Temp Pulse Resp B/P (MAP) Pulse Ox O2 O2 Flow FiO2 Time Delivery Rate 02/13/18 98.4 71 18 143/68 95 02:00 (93) 02/11/18 Nasal 08:00 Cannula Intake and Output 02/12/18 02/12/18 02/13/18 1515:00 23:00 07:00 IntakeIntake Total 360 ml 240 ml 50 ml BalanceBalance 360 ml 240 ml 50 ml Exam General: Patient sitting up on side of bed and answers simple questions Neck: Supple Respiratory: Clear to auscultation bilaterally. no wheezing or rhonchi Cardiovascular: regular rate and rhythm, no obvious murmurs Gastrointestinal: soft, non-tender to palpation, bowel sounds heard. Neurological: Moves all extremities spontaneously Skin: No new skin lesions Medications Medications Current Medications Amlodipine Besylate (Norvasc) 5 mg BID PO Last administered on 02/12/18 21:30; Admin Dose 5 MG; Start 02/06/18 at 21:00 Aspirin (Halfprin) 81 mg DAILY PO Last administered on 02/12/18 08:47; Admin Dose 81 MG; Start 02/07/18 at 09:00 Atorvastatin Calcium (Lipitor) 40 mg QHS PO Last administered on 02/11/18 20:35; Admin Dose 40 MG; Start 02/06/18 at 21:00 Calcium Carbonate (Oyster Shell Calcium) 1.25 gm DAILY PO Last administered on 02/12/18 08:47; Admin Dose 1.25 GM; Start 02/07/18 at 09:00 Cholecalciferol (Vitamin D) 2,000 unit DAILY PO Last administered on 02/12/18 08:47; Admin Dose 2,000 UNIT; Start 02/07/18 at 09:00 Citalopram Hydrobromide (Celexa) 10 mg DAILY PO Last administered on 02/12/18 08:43; Admin Dose 10 MG; Start 02/07/18 at 09:00 Cyanocobalamin (Vitamin B12) 1,000 mcg DAILY PO Last administered on 02/12/18 08:46; Admin Dose 1,000 MCG; Start 02/07/18 at 09:00 Fluticasone/ Vilanterol (Breo Ellipta 100-25 Mcg Inh) 1 inh DAILY INH Last administered on 02/12/18 08:48; Admin Dose 1 INH; Start 02/07/18 at 09:00 Levothyroxine Sodium (Synthroid) 75 mcg BEFORE BREAKFAST PO Last administered on 02/13/18 06:16; Admin Dose 75 MCG; Start 02/07/18 at 07:00 Memantine (Namenda) 10 mg BID PO Last administered on 02/12/18 21:30; Admin Dose 10 MG; Start 02/06/18 at 21:00 IV Flush (NS 3 ml) 3 ml PER PROTOCOL IV ; Start 02/06/18 at 18:00 Ondansetron HCl (Zofran Inj) 4 mg Q6H PRN IV NAUSEA AND/OR VOMITING; Start 02/06/18 at 18:00 Acetaminophen (Tylenol Tab) 650 mg Q6H PRN PO PAIN LEVEL 1-3 OR FEVER; Start 02/06/18 at 18:00 Acetaminophen/ Hydrocodone Bitart ([place] (5/325)) 1 tab Q6H PRN PO PAIN LEVEL 4-6; Start 02/06/18 at 18:00 Diagnostic Test (Pha) (Accu-Chek) 1 ea 02 XX Last administered on 02/10/18at 02:26; Admin Dose 1 EA; Start 02/07/18 at 02:00 Insulin Glargine (Lantus) 9 units DAILY@2000 SC Last administered on 02/12/18at 20:19; Admin Dose 9 UNITS; Start 02/06/18 at 20:00 Insulin Aspart (Novolog Insulin Pen) NOVOLOG *MILD* ALGORITHM WITH MEALS BEDTIME SC Last administered on 02/12/18at 21:36; Admin Dose 2 UNIT; Start 02/06/18 at 21:00 Losartan Potassium (Cozaar) 100 mg DAILY PO Last administered on 02/12/18at 08:46; Admin Dose 100 MG; Start 02/07/18 at 09:00 Miscellaneous Information 1 ea NOTE XX ; Start 02/06/18 at 18:30 Glucose (Glutose) 15 gm Q15M PRN PO DECREASED GLUCOSE; Start 02/06/18 at 18:30 Glucose (Glutose) 22.5 gm Q15M PRN PO DECREASED GLUCOSE; Start 02/06/18 at 18:30 Dextrose (D50w Syringe) 25 ml Q15M PRN IV DECREASED GLUCOSE; Start 02/06/18 at 18:30 Dextrose (D50w Syringe) 50 ml Q15M PRN IV DECREASED GLUCOSE; Start 02/06/18 at 18:30 Glucagon (Glucagen) 1 mg Q15M PRN IM DECREASED GLUCOSE; Start 02/06/18 at 18:30 Glucose (Glutose) 15 gm Q15M PRN BUCCAL DECREASED GLUCOSE; Start 02/06/18 at 18:30 LOURDES PATEL MD Feb 13, 2018 09:03
[2018-02-13] MEDS: CHOLECALCIFEROL 2,000 UNIT CAP PO SCH (09:24)
[2018-02-13] MEDS: LOSARTAN 50 MG TAB PO SCH (09:24)
[2018-02-13] MEDS: CALCIUM CARBONATE 1.25 GM TAB PO SCH (09:25)
[2018-02-13] MEDS: ASPIRIN (EC) 81 MG TAB PO SCH (09:25)
[2018-02-13] MEDS: MEMANTINE 10 MG TAB PO SCH ×2 (09:25→20:42)
[2018-02-13] MEDS: AMLODIPINE 5 MG TAB PO SCH ×2 (09:26→20:42)
[2018-02-13] MEDS: CITALOPRAM 20 MG TAB PO SCH (09:26)
[2018-02-13] MEDS: FLUTICASONE/VILANTEROL 100-25 INH SCH (09:27)
[2018-02-13] MEDS: CYANOCOBALAMIN 500 MCG TAB PO SCH (09:27)
[2018-02-13 14:50] VITALS: BP 126/62; PULSE 76; RESP 18
[2018-02-13 19:44] VITALS: BP 129/59; PULSE 79; RESP 20
[2018-02-13] MEDS: ATORVASTATIN 40 MG TAB PO SCH (20:42)
[2018-02-13] MEDS: INSULIN GLARGINE [LANTus] (100 UNITS/ML) SYG SC SCH (20:56)
[2018-02-13] MEDS ORDERED: INSULIN ASPART [NOVOLOG] 3 ML PEN SC ONE (21:00)
[2018-02-14] MEDS: ACCU-CHEK XX SCH (02:00)
[2018-02-14 02:10] VITALS: BP 124/56; PULSE 71; RESP 18
[2018-02-14] MEDS: LEVOTHYROXINE 75 MCG TAB PO SCH (06:56)
[2018-02-14 08:00] VITALS: BP 135/60; PULSE 67; RESP 16
[2018-02-14] MEDS: CYANOCOBALAMIN 500 MCG TAB PO SCH (08:30)
[2018-02-14] MEDS: LOSARTAN 50 MG TAB PO SCH (08:30)
[2018-02-14] MEDS: MEMANTINE 10 MG TAB PO SCH (08:30)
[2018-02-14] MEDS: ASPIRIN (EC) 81 MG TAB PO SCH (08:30)
[2018-02-14] MEDS: CHOLECALCIFEROL 2,000 UNIT CAP PO SCH (08:30)
[2018-02-14] MEDS: CITALOPRAM 20 MG TAB PO SCH (08:30)
[2018-02-14] MEDS: AMLODIPINE 5 MG TAB PO SCH (08:30)
[2018-02-14] MEDS: CALCIUM CARBONATE 1.25 GM TAB PO SCH (08:30)
[2018-02-14] MEDS: FLUTICASONE/VILANTEROL 100-25 INH SCH (08:31)
[2018-02-14] MEDS: INSULIN ASPART [NOVOLOG] 3 ML PEN SC SCH ×2 (08:32→12:18)
--- NOTE | 2018-02-14 09:14 | PN ---
Date/Time of Note Date/Time of Note DATE: 02/14/18 TIME: 09:14 Assessment/Plan VTE Prophylaxis Risk score (from Ns)>0 risk: 5 SCD applied (from Ns): Yes Pharmacological prophylaxis: other Lines/Catheters IV Catheter Type (from Nrsg): Saline Lock Urinary Cath still in place: No Assessment/Plan Assessment/Plan 1. Acute dizziness with near syncopal episode - most likely secondary to dehydration - no further episodes during hospital stay - imaging results noted with no acute abnormalities - ECHO results noted as well with no structural abnormalities 2. UTI- treated - patient completed course of antibiotics 3. HTN - will advice not to continue on hctz after discharge since most likely contributed to dehydration - stable during hospital stay and will advice monitoring and follow up with PCP 4. DM - ISS and accuchecks - A1c noted - holding PO med and will resume at time of discharge 5. Dementia - Continue Namenda 6. Dyslipidemia - Continue home meds 7. COPD - Continue Breo 8. Hypothyroidism - Continue home meds 9. Mood disorder - continue Celexa 10. hx of aneurysm s/p clipping - monitor 11. Disposition - Medically stable for discharge back to assisted living with PT Result Diagram: 02/11/18 0653 02/11/18 0653 Results 24hrs Laboratory Tests Test 02/13/18 11:51 02/13/18 16:46 02/13/18 20:39 02/14/18 02:12 Bedside Glucose 295 H 213 330 H 145 Test 02/14/18 05:01 02/14/18 08:05 Bedside Glucose 155 142 Subjective 24 Hr Interval Summary Free Text/Dictation Patient doing well and denies any new complaints. Remains pleasantly confused. Tolerating PO intake. No acute overnight events. Exam/Review of Systems Vital Signs Vitals Vital Signs Date Temp Pulse Resp B/P (MAP) Pulse Ox O2 O2 Flow FiO2 Time Delivery Rate 02/14/18 98.1 67 16 135/60 94 08:00 (85) 02/11/18 Nasal 08:00 Cannula Intake and Output 02/13/18 02/13/18 02/14/18 1515:00 23:00 07:00 IntakeIntake Total 360 ml 240 ml BalanceBalance 360 ml 240 ml Exam General: Patient sitting up on side of bed and answers simple questions Neck: Supple Respiratory: Clear to auscultation bilaterally. no wheezing or rhonchi Cardiovascular: regular rate and rhythm, no obvious murmurs Gastrointestinal: soft, non-tender to palpation, bowel sounds heard. Neurological: Moves all extremities spontaneously Skin: No new skin lesions Medications Medications Current Medications Amlodipine Besylate (Norvasc) 5 mg BID PO Last administered on 02/14/18 08:30; Admin Dose 5 MG; Start 02/06/18 at 21:00 Aspirin (Halfprin) 81 mg DAILY PO Last administered on 02/14/18 08:30; Admin Dose 81 MG; Start 02/07/18 at 09:00 Atorvastatin Calcium (Lipitor) 40 mg QHS PO Last administered on 02/13/18 20:42; Admin Dose 40 MG; Start 02/06/18 at 21:00 Calcium Carbonate (Oyster Shell Calcium) 1.25 gm DAILY PO Last administered on 02/14/18 08:30; Admin Dose 1.25 GM; Start 02/07/18 at 09:00 Cholecalciferol (Vitamin D) 2,000 unit DAILY PO Last administered on 02/14/18 08:30; Admin Dose 2,000 UNIT; Start 02/07/18 at 09:00 Citalopram Hydrobromide (Celexa) 10 mg DAILY PO Last administered on 02/14/18 08:30; Admin Dose 10 MG; Start 02/07/18 at 09:00 Cyanocobalamin (Vitamin B12) 1,000 mcg DAILY PO Last administered on 02/14/18 08:30; Admin Dose 1,000 MCG; Start 02/07/18 at 09:00 Fluticasone/ Vilanterol (Breo Ellipta 100-25 Mcg Inh) 1 inh DAILY INH Last administered on 02/14/18 08:31; Admin Dose 1 INH; Start 02/07/18 at 09:00 Levothyroxine Sodium (Synthroid) 75 mcg BEFORE BREAKFAST PO Last administered on 02/14/18 06:56; Admin Dose 75 MCG; Start 02/07/18 at 07:00 Memantine (Namenda) 10 mg BID PO Last administered on 02/14/18 08:30; Admin Dose 10 MG; Start 02/06/18 at 21:00 IV Flush (NS 3 ml) 3 ml PER PROTOCOL IV ; Start 02/06/18 at 18:00 Ondansetron HCl (Zofran Inj) 4 mg Q6H PRN IV NAUSEA AND/OR VOMITING; Start 02/06/18 at 18:00 Acetaminophen (Tylenol Tab) 650 mg Q6H PRN PO PAIN LEVEL 1-3 OR FEVER; Start 02/06/18 at 18:00 Acetaminophen/ Hydrocodone Bitart ([place] (5/325)) 1 tab Q6H PRN PO PAIN LEVEL 4-6; Start 02/06/18 at 18:00 Diagnostic Test (Pha) (Accu-Chek) 1 ea 02 XX Last administered on 02/10/18at 02:26; Admin Dose 1 EA; Start 02/07/18 at 02:00 Insulin Glargine (Lantus) 9 units DAILY@2000 SC Last administered on 02/13/18at 20:56; Admin Dose 9 UNITS; Start 02/06/18 at 20:00 Insulin Aspart (Novolog Insulin Pen) NOVOLOG *MILD* ALGORITHM WITH MEALS BEDTIME SC Last administered on 02/14/18at 08:32; Admin Dose 1 UNIT; Start 02/06/18 at 21:00 Losartan Potassium (Cozaar) 100 mg DAILY PO Last administered on 02/14/18at 08:30; Admin Dose 100 MG; Start 02/07/18 at 09:00 Miscellaneous Information 1 ea NOTE XX ; Start 02/06/18 at 18:30 Glucose (Glutose) 15 gm Q15M PRN PO DECREASED GLUCOSE; Start 02/06/18 at 18:30 Glucose (Glutose) 22.5 gm Q15M PRN PO DECREASED GLUCOSE; Start 02/06/18 at 18:30 Dextrose (D50w Syringe) 25 ml Q15M PRN IV DECREASED GLUCOSE; Start 02/06/18 at 18:30 Dextrose (D50w Syringe) 50 ml Q15M PRN IV DECREASED GLUCOSE; Start 02/06/18 at 18:30 Glucagon (Glucagen) 1 mg Q15M PRN IM DECREASED GLUCOSE; Start 02/06/18 at 18:30 Glucose (Glutose) 15 gm Q15M PRN BUCCAL DECREASED GLUCOSE; Start 02/06/18 at 18:30 LOURDES PATEL MD Feb 14, 2018 09:14
[2018-02-14] MEDS ORDERED: LOSA50TA2 PO (11:58)
--- NOTE | 2018-02-14 12:01 | PDOCDIS ---
Discharge Instructions DIAGNOSIS Discharge Diagnosis 1. Acute dizziness with near syncopal episode 2. Urinary tract infection- treated 3. Hypertension 4. Diabetes Mellitus 5. Dementia 6. Dyslipidemia 7. COPD 8. Hypothyroidism 9. Mood disorder 10. hx of aneurysm s/p clipping CONDITION [id number] Patient Condition: [id number] Stable HOME CARE INSTRUCTIONS: [id number] Diet Instructions: [id number] Low Fat /Cholesterol FOLLOW UP/APPOINTMENTS Follow-up Plan 1. Follow up with your primary care physician in 1 week 2. Continue taking all mediations as prescribed but do not take your hydrochlorothiazide since most likely contributed to your dizziness and episode of almost passing out. This medication tends to dehydrate people. Your blood pressure was well controlled while off that medication during your hospital stay 3. Continue working with physical therapy and have home health monitor your vitals signs 4. If symptoms return or worsen, go to your closest emergency department LOURDES PATEL MD Feb 14, 2018 12:01
[2018-02-14 14:45] VITALS: BP 129/64; PULSE 76; RESP 17
--- NOTE | 2018-02-14 17:59 | DS ---
Date/Time of Note Date/Time of Note DATE: 02/14/18 TIME: 17:55 Discharge Summary Admission/Discharge Info Admit Date/Time Feb 06, 2018 at 17:41 Discharge Date/Time Feb 14, 2018 at 17:00 Discharge Diagnosis 1. Acute dizziness with near syncopal episode 2. Urinary tract infection- treated 3. Hypertension 4. Diabetes Mellitus 5. Dementia 6. Dyslipidemia 7. COPD 8. Hypothyroidism 9. Mood disorder 10. hx of aneurysm s/p clipping Patient Condition: Stable Procedures PROCEDURE: Carotid ultrasound CLINICAL INDICATION: Syncope, carotid bruits TECHNIQUE: Wills scale, color doppler, spectral doppler ultrasound of the bilateral carotid and vertebral arteries. This study indirectly references the measurement of the distal ICA diameter as the denominator for stenosis measurement. Validated velocity measurements with angiographic measurements, velocity criteria are extrapolated from diameter data as defined by: *Cartoid artery stenosis: wills-scale and Doppler US diagnosis. Society of Radiologists in Ultrasound Consensus Conference. Radiology 2003; 229: 340-346. SRU Consensus Conference Criteria for the Diagnosis of Carotid Artery Stenosis* Degree of Stenosis, % ICA PSV, cm/sec Plaque Estimate, % ICA/CCA PSV Ratio Normal <125 None <2.0 <50 <125 <50 <2.0 50 69 125-230 >50 2.0-4.0 >70 but less than near occlusion >230 >50 <4.0 Near occlusion High, low, or undetectable Visible Variable Total occlusion Undetectable Visible, no detectable lumen Not applicable COMPARISON: No prior studies are available for comparison. FINDINGS: Location Right CCA 37 - 44 cm/sec Prox ICA 31 cm/sec Mid ICA 30 cm/sec Dist ICA 27 cm/sec ECA 59 cm/sec ICA/CCA 0.8 Left CCA 36 - 47 cm/sec Prox ICA 24 cm/sec Mid ICA 35 cm/sec Dist ICA 44 cm/sec ECA 58 cm/sec ICA/CCA 1.2 Plaque burden: No significant plaque is seen. Antegrade flow is seen within the vertebral arteries bilaterally. IMPRESSION: No evidence of a hemodynamically significant carotid stenosis. RPTAT: AADD .Wood Hunt MD, MD Date Time Electronically viewed and signed by .Wood Hunt MD, on 02/07/2018 09:40 PROCEDURE: XR Chest. CLINICAL INDICATION: Headache TECHNIQUE: Single portable view of the chest was obtained COMPARISON: No priors for comparison FINDINGS: The trachea is midline. The cardiac silhouette and pulmonary vascularity are within normal limits. The lungs are clear. The costophrenic angles are sharp. IMPRESSION: 1. No evidence of acute cardiopulmonary disease. RPTAT: AAPP Physician Adebayo Date Time Electronically viewed and signed by Physician Adebayo on 02/06/2018 15:38 PROCEDURE: CT Brain without contrast. CLINICAL INDICATION: Syncope TECHNIQUE: A CT of the brain was performed on a multi-slice CT scanner utilizing axial imaging from the skull base through the vertex without IV contrast. Coronal and sagittal re-formations were created. Images were reviewed on a PACS workstation. The CTDIvol is 39 mGy and the DLP is 634 mGycm. DICOM images are available. 3-D reconstructions were not performed. One or more of the following dose reduction techniques were utilized: 1.) Automated exposure control 2.) Adjustment of the mA +/- kV according to patient's size 3.) Use of iterative reconstruction technique. COMPARISON: None FINDINGS: The basilar cisterns, ventricular spaces and sulcal spaces are all moderately prominent. There is no midline shift or other evidence of mass effect. There are no abnormal foci of increased attenuation in the brain parenchyma. There is diffuse periventricular white matter low attenuation in both hemispheres with focal high right frontal encephalomalacia. Adjacent to this encephalomalacia peripherally there is a skull based calcified hemispheric lesion measuring 9 mm in diameter. It is unclear if this is a small calcified epidural hemorrhage or other post traumatic lesion versus a small meningioma.. Bone-windows show a previous right temporal craniotomy and right parasellar aneurysm clip. The visualized paranasal sinuses and mastoid air cells are clear. IMPRESSION: 1. Moderate central and cortical cerebral atrophy and microvascular white matter disease, without evidence of intracranial hemorrhage, mass, or acute infarct. 2. Previous right temporal craniotomy and right parasellar aneurysm clipping. RPTAT:AAJJ Physician Jessica Date Time Electronically viewed and signed by Shabana Valadez Physician on 02/06/2018 20:52 Hx of Present Illness Patient is a female with past medical history significant for vascular dementia, diabetes mellitus, hypertension, hypothyroidism, brain aneurysm, CVA, COPD, dyslipidemia, mood disorder who presents to [facility] from assisted living facility due to near syncope. Patient does have dementia but is occasionally oriented to self, information is obtained at bedside with help of family member. Patient states that she woke up today she started to feel dizzy, did not fall or have a true syncopal episode. Patient currently is very pleasant, however is very difficult to ascertain which is true or not given her dementia status. Patient does not have any other acute complaints and denies any urinary symptoms. Patient denies chest pain, shortness of breath, headache, dizziness, leg pain, abdominal pain, nausea, vomiting Hospital Course Patient was admitted for workup of acute dizziness and found with dehydration and UTI. Patient had imaging studies performed which were negative for any acute issues. She completed a course of antibiotics for urinary tract infection as well. Her hctz was held due to contributing to dehydration and other BP medications were continued. Patient was evaluated by physical therapy and recommended SNF placement. Patients presenting symptoms resolved and overall condition improved. Insurance denied SNF placement and patient was discharged back to assisted living with [facility] in good condition. Home Meds Active Scripts Losartan Potassium* (Cozaar*) 50 Mg Tablet, 100 MG PO DAILY for 30 Days, #30 TAB 6 Refills Prov:LOURDES PATEL MD 02/14/18 Reported Medications Acetaminophen* (Acetaminophen*) 500 MG Extra Strength Tablet, 500 MG PO TID PRN for PAIN, TAB 02/06/18 Metformin Hcl* (Metformin Hcl*) 1,000 Mg Tablet, 1000 MG PO WITH BREAKFAST DINNE, #60 TAB 02/06/18 Memantine* (Namenda*) 10 Mg Tablet, 10 MG PO BID, #60 TAB 02/06/18 Lactobacillus Acidophilus* (Lactinex*) 1 Tab Chew, 1 TAB PO BID, TAB 02/06/18 Amlodipine Besylate* (Norvasc*) 5 Mg Tablet, 5 MG PO BID, TAB 02/06/18 Cholecalciferol (Vitamin D3) (VITAMIN D-3) 2,000 Unit Capsule, 2000 UNIT PO DAILY, CAP 02/06/18 Cyanocobalamin* (Vitamin B-12*) 1,000 Mcg Tablet.sa, 1000 MCG PO DAILY, TAB 02/06/18 Calcium Carbonate ([id number]) 500 Mg Tablet, 500 MG PO DAILY, TAB 02/06/18 Psyllium Husk/Aspartame (Metamucil Sugar-Free Powder) 283 Gm Powder, 5 ML PO DAILY 02/06/18 Levothyroxine Sodium* (Levothyroxine Sodium*) 75 Mcg Tablet, 75 MCG PO BEFORE BREAKFAST, #30 TAB 02/06/18 Sitagliptin* (Januvia*) 50 Mg Tablet, 50 MG PO DAILY, #30 TAB 02/06/18 Citalopram Hydrobromide* (Citalopram Hydrobromide*) 10 Mg Tablet, 10 MG PO DAILY, #30 TAB 02/06/18 Fluticasone-Vilanterol (Breo Ellipta Inhaler) 100-25 Mcg/Actuation Aer.pow.ba, 1 PUFF INHALATION DAILY, #1 INHALER 02/06/18 Atorvastatin* (Atorvastatin*) 40 Mg Tablet, 40 MG PO QHS, #30 TAB 02/06/18 Aspirin* (Aspirin* EC) 81 Mg Tablet.dr, 81 MG PO DAILY, TAB 02/06/18 Discontinued Reported Medications Potassium Chloride* (K-Dur*) 10 Meq Tab.prt.sr, 10 MEQ PO DAILY, TAB 02/06/18 Losartan-Hydrochlorothiazide (Losartan-HCTZ) 100-25 Mg Tab, 1 TAB PO DAILY, TAB 02/06/18 Follow-up Plan 1. Follow up with your primary care physician in 1 week 2. Continue taking all mediations as prescribed but do not take your hydrochlorothiazide since most likely contributed to your dizziness and episode of almost passing out. This medication tends to dehydrate people. Your blood pressure was well controlled while off that medication during your hospital stay 3. Continue working with physical therapy and have home health monitor your vitals signs 4. If symptoms return or worsen, go to your closest emergency department Primary Care Provider Not On Staff Doctor Time spent on discharge: > 30 minutes Pending Labs Laboratory Tests Test 02/13/18 20:39 02/14/18 02:12 02/14/18 05:01 02/14/18 08:05 Bedside 330 145 155 142 Glucose mg/dL (70-220) mg/dL (70-220) mg/dL (70-220) mg/dL (70-220) Test 02/14/18 12:13 Bedside 214 Glucose mg/dL (70-220) LOURDES PATEL MD Feb 14, 2018 17:59
--- NOTE | 2018-02-22 14:07 | PN ---
Date/Time of Note Date/Time of Note DATE: 02/09/18 TIME: 14:05 VTE Prophylaxis Risk score (from Nsg)>0 risk: 5 SCD applied (from Ns): Yes Lines/Catheters IV Catheter Type: Pablo in Place: No Assessment/Plan Hospital Course This note is intended for 02/09/18 subjective no dizziness Objective Physical exam General: Patient is laying in bed and answers questions appropriately Mentation: Patient is alert and oriented to self Head: Normocephalic atraumatic Eyes: EOMI, pupils reactive to light Neck: Supple, nontender, midline Respiratory: Clear to auscultation bilaterally Cardiovascular: regular rate, no obvious murmurs Gastrointestinal: non-tender to palpation, bowel sounds heard. 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 UTI -Ceftriaxone changed to cipro. finished short 3 day course for uncomplicated UTI Hypertension -Holding patient's hydrochlorothiazide as this may be dehydrating in an elderly individual with dementia, will continue other meds -doing well, will not DC patient with HCTZ, causing this patient with dementia, dehydration. Diabetes mellitus -Insulin while in house Dementia -Continue Namenda Dyslipidemia -Continue home meds COPD -Continue Breo Hypothyroidism -Continue home meds Mood disorder -continue Celexa hx of aneurysm clipping -monitor Disposition -cont abx, monitor BP without HCTZ, -spoke with JOY, patient's daughter, will try to place patient in SNF (patient's is at [facility]) PUMA HOGAN Feb 22, 2018 14:07
== END 2018-02-14 17:00 | disposition home health service (06) | DRG 690 ==
LOC: E/R 14:15 → TEL 17:41 → PP2 02-09 16:13
PROVIDERS: ADMIT Internal Medicine; ATTEND Internal Medicine
DX: N39.0 Urinary tract infection, site not specified (principal); R55 Syncope and collapse; E86.0 Dehydration; E03.9 Hypothyroidism, unspecified; J44.9 Chronic obstructive pulmonary disease, unspecified; I10 Essential (primary) hypertension; E11.9 Type 2 diabetes mellitus without complications; E78.5 Hyperlipidemia, unspecified; F39 Unspecified mood [affective] disorder; Z86.73 Personal history of transient ischemic attack (TIA), and cerebral infarction without residual deficits; F01.50 Vascular dementia, unspecified severity, without behavioral disturbance, psychotic disturbance, mood disturbance, and anxiety; Z86.79 Personal history of other diseases of the circulatory system; Z98.890 Other specified postprocedural states
CPT/HCPCS: 36415; 70450; 71045; 80048; 80053; 80061; 81001; 82962; 83036; 83735; 84100; 84443; 84484; 85025; 85610; 93005; 93306; 93880; 96374; 97110; 97116; 97162; 97167; 97168; 97530; 97535; J0696; J1815; J3475; J7030; J7040